=== PATIENT | female | born 1990 | race Two or more races ===

== ENCOUNTER 2023-03-13 08:30 | Emergency (ER) | payer OTHER, SELFPAY ==
[2023-03-13 08:42] VITALS: BP 181/70; PULSE 72; RESP 22; O2SAT 97; BMI 55.2
--- NOTE | 2023-03-13 08:55 | ED_ITS ---
HPI - Female Genitourinary General Chief complaint: Urogenital-Female Stated complaint: BLOOD FLOW ABNORMAL FOR PERIOD-MORE THAN USUAL Time Seen by Provider: 03/13/23 08:41 Source: patient Mode of arrival: walk-in History of Present Illness HPI Narrative: 32-year-old female presents for heavy vaginal bleeding. She began her period at the correct timing but then it's been heavier than typical. No syncope. She has abdominal cramping yesterday but none today. No fever or vomiting or back pain. She states years ago she used to have heavy periods. Related Data Home Medications Medication Instructions Recorded Confirmed oxybutynin chloride 10 mg 10 mg PO DAILY 03/13/23 03/13/23 tablet,extended release 24 hr Allergies Allergy/AdvReac Type Severity Reaction Status Date / Time clindamycin AdvReac Severe Verified 03/13/23 08:52 Penicillins AdvReac Severe hives Verified 03/13/23 08:52 Fish Containing Products AdvReac Unknown Verified 03/13/23 08:52 Review of Systems ROS Narrative A ten point review of systems is negative except as noted above. Exam Narrative Exam Narrative: Nurses note and vital signs reviewed and patient is not hypoxic. General: The patient appears well and in no apparent distress. Patient is resting comfortably on cart. Skin: Warm, dry, no pallor noted. There is no rash noted. Head: Normocephalic, atraumatic Eye: Normal conjunctiva, no drainage Ears, Nose, Mouth, and Throat: oral mucosa is moist. Nares patent. Cardiovascular: Regular Rate and Rhythm Respiratory: Patient is in no distress, no accessory muscle use, lungs are clear to auscultation, no wheezing, rales or rhonchi Back: non-tender GI: obese and nontender Musculoskeletal: The patient has no evidence of calf tenderness, no pitting edema, symmetrical pulses noted bilaterally Neurological: A&O, normal speech Psychiatric: Cooperative Constitutional Vital Signs, click to edit/add: Last Vital Signs Pulse 72 03/13/23 08:42 Resp 22 03/13/23 08:42 BP 181/70 H 03/13/23 08:42 Pulse Ox 97 03/13/23 08:42 O2 Del Method Room Air 03/13/23 08:42 Course Vital Signs Vital signs: Vital Signs Pulse Rate 72 03/13/23 08:42 Respiratory Rate 22 03/13/23 08:42 Blood Pressure 181/70 H 03/13/23 08:42 Pulse Oximetry 97 03/13/23 08:42 Oxygen Delivery Method Room Air 03/13/23 08:42 Pulse Rate 72 03/13/23 08:42 Respiratory Rate 22 03/13/23 08:42 Blood Pressure 181/70 H 03/13/23 08:42 Pulse Oximetry 97 03/13/23 08:42 Oxygen Delivery Method Room Air 03/13/23 08:42 MDM - Female Genitourinary MDM Narrative Medical decision making narrative: the patient is not or anemic. Vital signs are appropriate and she is discharged home with follow-up with her inbound call center representative. She was instructed to call her inbound call center representative today for follow-up and that his symptoms do not go away she may need to have an ultrasound performed. There is no indication for an emergent ultrasound. Treatment diagnosis and follow-up were discussed with the patient. Differential Diagnosis Differential diagnosis: Likely other (, miscarriage, ectopic , dysfunctional uterine bleeding) Lab Data Attestation: I reviewed the patient's lab results. Labs: Lab Results 03/13/23 Range/Units 09:09 WBC 10.0 (4.0-11.0) 10^3/uL RBC 5.03 (4.20-5.40) 10^6/uL Hgb 13.4 (12.0-16.0) g/dL Hct 43.0 (36.0-48.0) % MCV 85.5 (81.0-99.0) fL MCH 26.6 L (26.7-34.0) pg MCHC 31.2 (29.9-35.2) g/dL RDW 15.5 H (11.0-15.0) % Plt Count 258 (150-450) 10^3/uL MPV 10.9 (9.5-13.5) fL Neut % (Auto) 59.3 (43.0-75.0) % Lymph % (Auto) 28.9 (20.5-60.0) % [place] % (Auto) 8.1 (1.7-12.0) % Eos % (Auto) 3.1 (0.9-7.0) % Baso % (Auto) 0.3 (0.2-2.0) % Neut # (Auto) 5.9 (1.4-6.5) 10^3/uL Lymph # (Auto) 2.9 (1.2-3.8) 10^3/uL [place] # (Auto) 0.8 (0.3-0.8) 10^3/uL Eos # (Auto) 0.3 (0.0-0.7) 10^3/uL Baso # (Auto) 0.0 (0.0-0.1) 10^3/uL Abs Immat Gran (auto) 0.03 (0.00-0.03) 10^3/uL Imm/Tot Granulo (auto) 0.3 (0.0-0.5) % Sodium 137 (136-145) mmol/L Potassium 4.0 (3.5-5.1) mmol/L Chloride 101 (98-107) mmol/L Carbon Dioxide 26.8 (21.0-32.0) mmol/L Anion Gap 13.2 BUN 13.0 (7.0-18.0) mg/dL Creatinine 0.64 (0.55-1.02) mg/dL Est GFR ( Amer) >60 (>=60) Est GFR (Non-Af Amer) >60 (>=60) BUN/Creatinine Ratio 20.3 Glucose 102 (74-106) mg/dL Calcium 8.9 (8.5-10.1) mg/dL Serum HCG, Qual Negative (NEGATIVE) Discharge Plan Discharge Chief Complaint: Urogenital-Female Clinical Impression: DUB (dysfunctional uterine bleeding) Patient Disposition: Home, Self-Care Time of Disposition Decision: 09:50 Condition: Good Mode of Transportation: Private Vehicle Prescriptions / Home Meds: No Action oxybutynin chloride 10 mg tablet extended release 24hr 10 mg PO DAILY Instructions: Abnormal (Dysfunctional) Uterine Bleeding (ED) Additional Instructions: call your inbound call center representative today for follow-up appointment Stand Alone Forms: Portal Instructions Referrals: Physician,Non-Staff, MD [Primary Care Provider] - 1 week
[2023-03-13 09:25] LABS: Basophils Percent Auto 0.3 % (0.2-2.0); Eosinophils Absolute Auto 0.3 10^3/uL (0.0-0.7); Eosinophils Percent Auto 3.1 % (0.9-7.0); Hemoglobin 13.4 g/dL (12.0-16.0); Immature Granulocytes Abs Auto 0.03 10^3/uL (0.00-0.03); Immature Granulocytes Pct Auto 0.3 % (0.0-0.5); Lymphocytes Absolute Auto 2.9 10^3/uL (1.2-3.8); Lymphocytes Percent Auto 28.9 % (20.5-60.0); Mean Corpuscular HGB Conc 31.2 g/dL (29.9-35.2); Mean Corpuscular Hemoglobin 26.6 pg (26.7-34.0); Mean Corpuscular Volume 85.5 fL (81.0-99.0); Mean Platelet Volume 10.9 fL (9.5-13.5); Monocytes Absolute Auto 0.8 10^3/uL (0.3-0.8); Monocytes Percent Auto 8.1 % (1.7-12.0); Neutrophils Absolute Auto 5.9 10^3/uL (1.4-6.5); Neutrophils Percent Auto 59.3 % (43.0-75.0); Platelet Count 258 10^3/uL (150-450); Red Blood Count 5.03 10^6/uL (4.20-5.40); Red Cell Distribution Width 15.5 % (11.0-15.0)
[2023-03-13 09:34] LABS: Anion Gap 13.2; BUN Creatinine Ratio 20.3; Calcium 8.9 mg/dL (8.5-10.1); Carbon Dioxide 26.8 mmol/L (21.0-32.0); Chloride 101 mmol/L (98-107); Estimated GFR (African America >60 (>=60); Estimated GFR (Non-African Ame >60 (>=60); Glucose 102 mg/dL (74-106); Sodium 137 mmol/L (136-145)
[2023-03-13 09:41] LABS: HCG Qualitative NEGATIVE (NEGATIVE)
== END 2023-03-13 09:58 | disposition home or self-care (01) ==
PROVIDERS: Emergency Provider Emergency Medicine
DX: N93.8 Other specified abnormal uterine and vaginal bleeding (principal); Z79.899 Other long term (current) drug therapy
CPT/HCPCS: 36415; 80048; 84703; 85025; 99283